=== PATIENT | female | born 1960 | race Caucasian/White ===

== ENCOUNTER 2018-01-28 12:44 | Emergency (ER) | payer BC ==
[~2018-01-28] VITALS: Ht 162.6 cm; Wt 55.9 kg
[2018-01-28 12:49] VITALS: BP 118/61; TEMP 97.8
[2018-01-28] MEDS ORDERED: MAXALT10 MG PO (12:59)
[2018-01-28] MEDS ORDERED: SINGULAIR 110 MG/TAB PO (13:00)
[2018-01-28] MEDS ORDERED: ALLEGRA ODT30 MG PO (13:00)
[2018-01-28] MEDS ORDERED: ZOFRAN8 MG PO (13:00)
[2018-01-28] MEDS ORDERED: DEPAKOTE 250MG250 MG PO (13:01)
[2018-01-28] MEDS ORDERED: ESTRACE0.1 MG/GM VG (13:01)
[2018-01-28 13:29] LABS: BASO % 0.3 % (0.0-2.0); EOS # 0.1 (0.0-0.7); EOS % 1.5 % (0-4.0); GRAN # 6.1 (1.4-6.5); GRAN % 76.7 % (42.2-75.2); HEMATOCRIT 41.8 % (37.0-47.0); HEMOGLOBIN 14.1 g/dl (12.5-16.0); LYMPH # 1.2 (1.2-3.4); LYMPH % 14.8 % (20.0-51.0); MEAN CELL VOLUME 89 fl (80.0-100.0); MEAN CORPUSCULAR HEMOGLOBIN 30 pg (27.0-31.0); MEAN CORPUSCULAR HGB CONC 34 g/dl (33.0-37.0); MEAN PLATELET VOLUME 10.3 fl (7.4-10.4); MONO # 0.5 (0.1-0.6); MONO % 6.4 % (1.7-9.3); PLATELET COUNT 186 K/mm3 (130-400); RED BLOOD COUNT 4.72 M/mm3 (4.10-5.30); REDCELL DISTRIBUTION WIDTH-CV 12.4 % (11.5-14.5)
[2018-01-28 14:05] VITALS: PULSE 75
== END 2018-01-28 14:06 | disposition home or self-care (01) ==
LOC: COL.ER 12:44
PROVIDERS: Family Medicine
DX: G43.909 Migraine, unspecified, not intractable, without status migrainosus (principal)
CPT/HCPCS: J1885; J2550; J7030